=== PATIENT | female | born 1950 | race Caucasian/White ===

== ENCOUNTER → 2022-05-14 08:24 | Outpatient (BNVA) | payer MEDICARE, OTHER, SELFPAY | PROVIDERS: Family Provider Family Medicine; PCP Registered Nurse; Referring Provider Registered Nurse; Visit Provider Specialist | DX: G31.84 Mild cognitive impairment of uncertain or unknown etiology (principal); G93.89 Other specified disorders of brain; G43.711 Chronic migraine without aura, intractable, with status migrainosus; R44.2 Other hallucinations | CPT/HCPCS: 96116; 99204; 99205 ==

== ENCOUNTER 2022-06-19 09:59 | Outpatient (CLI) | payer MEDICARE, OTHER, SELFPAY ==
--- NOTE | 2022-06-19 10:15 | MR_ITS ---
WS: [id number] MRI HEAD WITH CONTRAST TECHNIQUE: Sagittal T1, T2 axial, T2 axial FLAIR, axial susceptibility weighted imaging, axial diffus ion weighted images, and coronal T2 images were obtained. Pre and post-T1 axial and post T1 coronal i mages. ADC and FSPGR images. CLINICAL INFORMATION: R41.3 - Other amnesia COMPARISON: None. FINDINGS: No evidence of restricted diffusion to suggest acute ischemia. Ventricular system and basal cisterns are patent. Prior postoperative changes bilateral frontal craniotomy with encephalomalacia and gliosi s in the parasagittal frontal lobes extending inferiorly. Normal posterior fossa. Normal vascular radha w voids at the skull base. No extra-axial fluid collections. No evidence of mass or mass effect. Mild mucosal thickening in the paranasal sinuses. Trace mucosal thickening in the mastoid air cells. No hemosiderin on the susceptibly weighted images. Normal optic chiasm. Slight rightward deviation of the infundibulum with suggestion of suprasellar cistern 7 mm T2 hyperintense cystic lesion. This can be further evaluated with MRI of the pituitary if clinically indicated. Associated peripheral enhanc ement. No abnormal foci of intraparenchymal enhancement. Dural venous sinuses appear patent. MR/MR head wo/w con [id number] IMPRESSION: 1. No evidence of restricted diffusion to suggest acute ischemia. 2. 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 3. Suggestion of 7 mm cystic appearing peripheral enhancing suprasellar lesion eccentric to the LEFT with mild mass effect on the infundibulum. This can be f urther evaluated MRI of the pituitary. 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 Recommend correlation with pituitary function studies. 4. No other acute findings.
[2022-06-19] MEDS: gadobenate dimeglumine 20 mL vial IV (10:52)
== END 2022-06-19 10:00 | disposition home or self-care (01) ==
LOC: RAD 10:00
PROVIDERS: PCP Registered Nurse; Visit Provider Specialist
DX: R41.3 Other amnesia (principal); G93.89 Other specified disorders of brain; G93.9 Disorder of brain, unspecified
CPT/HCPCS: 70553; A9577

== ENCOUNTER → 2022-10-09 09:56 | Outpatient (BNVA) | payer MEDICARE, OTHER, SELFPAY | PROVIDERS: PCP Registered Nurse; Visit Provider Specialist | DX: G31.84 Mild cognitive impairment of uncertain or unknown etiology (principal); G93.89 Other specified disorders of brain; Z98.890 Other specified postprocedural states | CPT/HCPCS: 99214 ==

== ENCOUNTER → 2023-01-20 10:42 | Outpatient (BNVA) | payer MEDICARE, OTHER, SELFPAY | PROVIDERS: PCP Registered Nurse; Referring Provider Specialist; Visit Provider Specialist | DX: G31.84 Mild cognitive impairment of uncertain or unknown etiology (principal); G43.711 Chronic migraine without aura, intractable, with status migrainosus | CPT/HCPCS: 96116; 99214 ==

== ENCOUNTER → 2023-05-06 11:45 | Outpatient (BNVA) | payer MEDICARE, OTHER, SELFPAY | PROVIDERS: PCP Registered Nurse; Visit Provider Specialist | DX: R29.90 Unspecified symptoms and signs involving the nervous system (principal); G43.711 Chronic migraine without aura, intractable, with status migrainosus; G31.84 Mild cognitive impairment of uncertain or unknown etiology; G93.89 Other specified disorders of brain | CPT/HCPCS: 99214 ==

== ENCOUNTER → 2023-11-04 13:28 | Outpatient (BNVA) | payer MEDICARE, OTHER, SELFPAY | PROVIDERS: PCP Registered Nurse; Visit Provider Specialist | DX: G43.711 Chronic migraine without aura, intractable, with status migrainosus (principal); G93.89 Other specified disorders of brain; G31.84 Mild cognitive impairment of uncertain or unknown etiology | CPT/HCPCS: 99214 ==

== ENCOUNTER → 2024-05-14 08:41 | Outpatient (BNVA) | payer MEDICARE, OTHER, SELFPAY | PROVIDERS: PCP Registered Nurse; Visit Provider Specialist | DX: G31.84 Mild cognitive impairment of uncertain or unknown etiology (principal); G43.711 Chronic migraine without aura, intractable, with status migrainosus; G93.89 Other specified disorders of brain | CPT/HCPCS: 96116; 99214 ==

== ENCOUNTER → 2024-07-13 13:16 | Outpatient (BNVA) | payer MEDICARE, OTHER, SELFPAY | PROVIDERS: PCP Registered Nurse; Visit Provider Specialist | DX: G31.84 Mild cognitive impairment of uncertain or unknown etiology (principal); G43.711 Chronic migraine without aura, intractable, with status migrainosus; G93.89 Other specified disorders of brain | CPT/HCPCS: 36415; 83520; 99214 ==

== ENCOUNTER → 2024-10-12 13:46 | Outpatient (BNVA) | payer MEDICARE, OTHER, SELFPAY | PROVIDERS: PCP Registered Nurse; Visit Provider Specialist | DX: G43.711 Chronic migraine without aura, intractable, with status migrainosus (principal); G93.89 Other specified disorders of brain; G31.84 Mild cognitive impairment of uncertain or unknown etiology | CPT/HCPCS: 99214 ==

== ENCOUNTER → 2024-10-20 13:18 | Outpatient (BNVA) | payer MEDICARE, OTHER, SELFPAY | PROVIDERS: PCP Registered Nurse; Visit Provider Internal Medicine Cardiovascular Disease | DX: R07.9 Chest pain, unspecified (principal); I83.93 Asymptomatic varicose veins of bilateral lower extremities | CPT/HCPCS: 93005 ==

== ENCOUNTER 2024-11-19 08:40 | Outpatient (CLI) | payer MEDICARE, OTHER, SELFPAY ==
--- NOTE | 2024-11-19 09:30 | USR_ITS ---
PROCEDURE INFORMATION: Exam: US Duplex Lower Extremity Veins, Bilateral Exam date and time: 11/19/2024 8:52 AM Age: 74 years old Clinical indication: Varicose veins of lower extremities TECHNIQUE: Imaging protocol: Real-time duplex ultrasound of the bilateral extremities with 2-D johnson scale, color Doppler flow and spectral waveform analysis including responses to compression and other maneuvers (when performed) with image documentation. Complete exam focused on the lower extremity veins. COMPARISON: No relevant prior studies available. FINDINGS: Right deep veins: Unremarkable. The common femoral, femoral, proximal profunda femoral and popliteal veins are patent without thrombus. Normal Doppler waveforms. Normal compressibility and/or augmentation response. Left deep veins: Unremarkable. The common femoral, femoral, proximal profunda femoral and popliteal veins are patent without thrombus. Normal Doppler waveforms. Normal compressibility and/or augmentation response. Superficial veins: Greater saphenous veins at the saphenofemoral junctions are patent bilaterally without thrombus. Soft tissues: Bilateral varicosities. Reflux times as noted within the images. US/CV aminah dup insujessy [facility] [id number] IMPRESSION: 1. No evidence of bilateral DVT. 2. Bilateral varicosities.
== END 2024-11-19 08:41 | disposition home or self-care (01) ==
PROVIDERS: PCP Registered Nurse; Visit Provider Internal Medicine Cardiovascular Disease
DX: I83.93 Asymptomatic varicose veins of bilateral lower extremities (principal)
CPT/HCPCS: 93970

== ENCOUNTER 2024-12-15 13:19 | Outpatient (CLI) | payer MEDICARE, OTHER, SELFPAY ==
--- NOTE | 2024-12-15 14:00 | USR_ITS ---
PROCEDURE INFORMATION: Exam: US Duplex Bilateral Lower Extremity Arteries Exam date and time: 12/15/2024 2:07 PM Age: 74 years old Clinical indication: Pain; Leg, lower; Right; Additional info: M79.604 - pain in right leg TECHNIQUE: Imaging protocol: Real-time ultrasound scan of the arteries of the bilateral lower extremities with 2-D johnson scale, color Doppler flow and spectral waveform analysis. Images documented and saved. COMPARISON: [place] [id number] 11/19/2024 8:52 AM FINDINGS: Right common femoral artery: No occlusion or significant stenosis. Normal waveform. Right superficial femoral artery: No occlusion or significant stenosis. Normal waveform. Right popliteal artery: No occlusion or significant stenosis. Normal waveform. Right calf/foot arteries: No occlusion or significant stenosis in the visualized arteries. Normal waveforms. Dorsalis pedis artery is patent. Left common femoral artery: No occlusion or significant stenosis. Normal waveform. Left superficial femoral artery: No occlusion or significant stenosis. Normal waveform. Left popliteal artery: No occlusion or significant stenosis. Normal waveform. Left calf/foot arteries: No occlusion or significant stenosis in the visualized arteries. Normal waveforms. Dorsalis pedis artery is patent. Other findings: Right TRISH: 0.9. Left TRISH: 0.94. US/[place] [id number] IMPRESSION: No stenosis or occlusion.
== END 2024-12-15 13:20 | disposition home or self-care (01) ==
PROVIDERS: PCP Registered Nurse; Visit Provider Internal Medicine Cardiovascular Disease
DX: M79.604 Pain in right leg (principal); M79.605 Pain in left leg
CPT/HCPCS: 93925

== ENCOUNTER → 2025-04-12 14:31 | Outpatient (BNVA) | payer MEDICARE, OTHER, SELFPAY | PROVIDERS: PCP Registered Nurse; Visit Provider Specialist | DX: G43.711 Chronic migraine without aura, intractable, with status migrainosus (principal); G93.89 Other specified disorders of brain; G31.84 Mild cognitive impairment of uncertain or unknown etiology | CPT/HCPCS: 99215 ==

== ENCOUNTER → 2025-07-11 11:19 | Outpatient (BNVA) | payer MEDICARE, OTHER, SELFPAY | PROVIDERS: PCP Registered Nurse; Visit Provider Specialist | DX: G43.711 Chronic migraine without aura, intractable, with status migrainosus (principal); G93.89 Other specified disorders of brain; G31.84 Mild cognitive impairment of uncertain or unknown etiology; R03.0 Elevated blood-pressure reading, without diagnosis of hypertension | CPT/HCPCS: 99215 ==